=== PATIENT | male | born 1995 | race Caucasian/White ===

== ENCOUNTER 2018-12-08 11:58 | Outpatient (CLI) | payer OTHER ==
[2018-12-08 12:29] LABS: Basophils # (Auto) 0.1 K/mm3 (0.0-0.1); Basophils % (Auto) 1.2 % (0.0-1.8); Eosinophils # (Auto) 0.2 K/mm3 (0.0-0.4); Eosinophils % (Auto) 2.6 % (0.0-4.3); Hemoglobin 16.1 gm/dl (11.8-15.2); Lymphocytes # (Auto) 2.3 K/mm3 (1.2-5.4); Lymphocytes % (Auto) 34.4 % (13.4-35.0); Mean Corpuscular HGB Conc 34 % (32-34); Mean Corpuscular Volume 86 fl (84-94); Monocytes # (Auto) 0.5 K/mm3 (0.0-0.8); Platelet Count 285 K/mm3 (140-440); Red Blood Count 5.49 M/mm3 (3.65-5.03)
[2018-12-08 12:50] LABS: Alanine Aminotransferase 37 units/L (7-56); Albumin 4.6 g/dL (3.9-5); BUN/Creatinine Ratio 12; Blood Urea Nitrogen 11 mg/dL (9-20); Calcium 9.6 mg/dL (8.4-10.2); Chol/HDL Ratio 6.06 %; HDL Cholesterol 31 mg/dL (40-59); Hemolysis Index 9; LDL Cholesterol,Direct 146 mg/dL (50-130)
--- NOTE | 2018-12-08 13:17 | XRay Report ---
ROUTINE CHEST, TWO VIEWS: HISTORY: Chronic cough. The trachea, heart, mediastinal contour, lung june and bony thorax are unremarkable. IMPRESSION: Unremarkable chest x-ray.
== END 2018-12-08 11:59 | disposition home or self-care (01) ==
LOC: XRAY 11:58
PROVIDERS: ATTEND Internal Medicine
DX: R05 Cough (principal)
CPT/HCPCS: 36415; 71046; 80053; 80061; 82785; 84436; 84443; 85025